=== PATIENT | male | born 2000 | race Caucasian/White ===

== ENCOUNTER 2020-08-11 13:07 | Emergency (ER) | payer OTHER ==
[2020-08-11 14:57] LABS: Absolute Lymphocytes (CBC) 1.9 K/uL (0.7-4.9); Basophils % 0.6 % (0-1.3); Hematocrit 45.8 % (39.6-49.0); Lymphocytes % 20.2 % (15.3-44.8); MPV 7.7 fL (7.6-11.3); RBC Red Blood Cell Count 5.69 M/uL (4.33-5.43)
[2020-08-11 15:01] LABS: BUN Blood Urea Nitrogen 14 mg/dL (7-18); Bicarbonate 28 mmol/L (21-32); Glucose Level 92 mg/dL (74-106); Potassium 3.9 mmol/L (3.5-5.1); Sodium Level 138 mmol/L (136-145)
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
[2020-08-11 17:26] VITALS: BP 131/69; TEMP 97.5; O2SAT 98
== END 2020-08-11 17:18 | disposition home or self-care (01) ==
LOC: ER 13:07
PROC: 2W3KX1Z Immobilization of Left Finger using Splint (ICD-10-PCS; principal; 2020-08-11)
DX: M20.012 Mallet finger of left finger(s) (principal); S80.12XA Contusion of left lower leg, initial encounter; V03.90XA Pedestrian on foot injured in collision with car, pick-up truck or van, unspecified whether traffic or nontraffic accident, initial encounter; Y92.832 Beach as the place of occurrence of the external cause; F17.210 Nicotine dependence, cigarettes, uncomplicated
CPT/HCPCS: 85025; 80048; 36415; 70450; 72125; 71260; 74177; 73130; 73552; 29130; Q9967; 99284